=== PATIENT | female | born 1960 | race Caucasian/White ===

== ENCOUNTER 2024-10-06 11:24 | Outpatient (REF) | payer OTHER, SELFPAY | END 2024-10-06 11:25 | disposition home or self-care (01) | LOC: HO.LNP 11:24 | PROVIDERS: PCP Family Medicine; Visit Provider Obstetrics & Gynecology | DX: Z01.419 Encounter for gynecological examination (general) (routine) without abnormal findings (principal) | CPT/HCPCS: 99386 ==

== ENCOUNTER 2024-10-06 11:24 | Outpatient (AMB) | payer OTHER, SELFPAY ==
--- NOTE | 2024-10-06 11:28 | A.OFFVIS_ITS ---
Vital Signs 10/06/24 11:40 Height 5 ft Weight 230 lb BMI 44.9 BP 128/74 Intake Visit Reasons: Bicomuate Uterus/Annual/Referral Intake Note: Last pap smear per patient 3 years ago, normal. Mammo a few months ago at [facility], normal. Bone Density last year, normal. Enterprise Integration Developer: Enterprise Integration Developer Present (Anahi ) Allergies latex Allergy (Verified 10/06/24 11:38) Redness of Skin pseudoephedrine [From Sudafed] Allergy (Verified 10/06/24 11:38) Palpitations HPI Comments Details: Presenting for annual exam. No complaints. Last Pap/HPV was few years ago, records are not available, no history of abnormal Pap smear Last Mammogram was done at [facility] according to patient was negative in 05/14 Last Colonoscopy was 4 years ago, the patient will be due for next screening colonoscopy in a year [facility] Medical History Carpal tunnel syndrome of right wrist delivery delivered Encounter for cholecystectomy Hypertension Surgical History Status post left foot surgery Previous back surgery H/O: hysterectomy Family History Maternal Grandmother Breast cancer Female Reproductive History Menstrual Age of menopause: 46 Total pregnancies: 10 Full term: 2 Ab spontaneous: 8 Review of Systems Const All systems reviewed & are unremarkable except as noted in HPI and below Card Reports as per HPI and Reports no additional complaints Resp Reports as per HPI and Reports no additional complaints GI Reports as per HPI and Reports no additional complaints Reports as per HPI Physical Exam Vital Signs: Last Vital Signs BP 128/74 10/06/24 11:40 BMI result Body Mass Index 44.9 Const General: cooperative, healthy appearing and comfortable General: Yes bladder normal to palpation External Female Exam: No lesion Speculum Exam - Vagina: normal appearance of the vagina, normal vaginal discharge and not erythematous Speculum Exam - Cervix: Cervix absent Bimanual exam- vagina & uterus: bladder normal to palpation and uterus absent Bimanual Exam- Adnexa, other: Other (No masses detected) Assessment & Plan Assessment & Plan (1) Well woman exam: Code(s): Z01.419 - Encounter for gynecological examination (general) (routine) without abnormal findings Category: Medical Plan: Co testing not indicated since the patient is s/p hytserrectomy for benign disease with no history of abnormal Pap smears Counseled the patient about the recommended dietary allowance of 1200 mg of Calcium & 600 IU of vitamin D. Instructions given the patient to schedule her next screening Mammogram in 05/19 The patient was instructed to perform monthly self-breast exams and schedule annual exam in a year. All questions answered and the patient verbalized understanding. Orders: Orders Pap Smear Today Z01.419 - Encounter for gynecological examination (general) (routine) without abnormal findings Coding Level of Care Code New Pt Prev Care 40-64y(45745) Diagnoses Well woman exam Z01.419
[2024-10-06 11:40] VITALS: BP 128/74; BMI 44.9
== END 2024-10-06 12:39 | disposition home or self-care (01) ==
PROVIDERS: PCP Family Medicine; Visit Provider Obstetrics & Gynecology
DX: Z01.419 Encounter for gynecological examination (general) (routine) without abnormal findings (principal)
CPT/HCPCS: 99386